=== PATIENT | male | born 1990 | race American Indian/Alaskan Native ===

== ENCOUNTER 2021-03-05 10:00 | Emergency (ER) | payer OTHER ==
[2021-03-05 10:22] VITALS: BP 130/84
--- NOTE | 2021-03-05 10:34 | Emergency Department Report ---
ED Rash HPI - HPI Stated Complaint: RASH Time Seen by Provider: 03/05/21 10:20 Duration: 1 week Location: Neck, Chest, Back, Abdomen, Upper Extremities, Lower Extremities Suspected Cause: Other (natural viagra medication) Rash Symptoms: No Itching, No Facial Swelling, No Tongue/Oral Swelling, No Breathing Difficulties, No Choking Sensation, No Wheezing/Dyspnea, No Peeling, No Blistering, No Fever, No Lightheaded, No Malaise, No Myalgias Severity: mild Other History: 30-year-old male presents to the ER today with complaints of a rash mainly to his trunk, upper extremities and lower extremities. He states that he noticed it about a week ago. He states that he does not itch nor is it tender to palpate. He states that it seems to be getting better, but he was just concerned and wanted to have it checked. He denies any new contacts such as new soaps, lotions, deodorants, foods or any other new contacts. He denies similar rash in the past. He denies any associated swelling, shortness of breath, wheezing, or any additional symptoms at this time. ED Review of Systems ROS: Stated complaint: RASH Other details as noted in HPI Comment: All other systems reviewed and negative Constitutional: denies: chills, fever Eyes: denies: eye pain, eye discharge, vision change ENT: denies: ear pain, throat pain, dental pain, hearing loss, epistaxis, congestion Respiratory: denies: cough, shortness of breath, SOB with exertion, SOB at rest, wheezing Cardiovascular: denies: chest pain, palpitations, dyspnea on exertion, edema, syncope, paroxysmal nocturnal dyspnea Gastrointestinal: denies: abdominal pain, nausea, diarrhea, constipation, hematemesis, melena, hematochezia Genitourinary: denies: urgency, dysuria, frequency, hematuria, discharge, testicular pain, testicular mass Musculoskeletal: denies: back pain, joint swelling, arthralgia, myalgia Skin: rash. denies: lesions, change in color, change in hair/nails, pruritus Neurological: denies: headache, weakness, paresthesias Psychiatric: denies: anxiety, depression, auditory hallucinations, visual hallucinations, homicidal thoughts, suicidal thoughts Hematological/Lymphatic: denies: easy bleeding, easy bruising, swollen glands ED Past Medical Hx - Past Medical History Additional medical history: DONATED KIDNEY - Surgical History Additional Surgical History: KIDNEY - Social History Smoking Status: Never Smoker - Medications Home Medications: Home Medications Medication Instructions Recorded Confirmed Last Taken Type Triamcinolone 0.1% [Kenalog 0.1% 1 applic TP TID #30 gm 03/05/21 Unknown Rx CREAM] Rash Exam - Exam General: Vital signs noted. No distress. Alert and acting appropriately. HEENT: No Periorbital Edema, No Conjuctival Injection, No Chemosis, No Perioral Edema, No Tongue Edema, No Uvular Edema, No Compromised Airway, No Drooling Lungs: No Good Air Exchange, No Wheezes, No Ronchi, No Stridor, No Cough, No Labored Respirations, No Retractions, No Use of Accessory Muscles, No Other Abnormal Lung Sounds Skin: Yes Maculopapular Rash (Maculopapular, some erythematous, some hypopigmented, annular rash of varying sizes scattered on chest, abdomen, mildly to the back and upper arms and his thighs. No secondary bacterial infection noted.), No Urticarial Rash, No Morbilliform rash, No Bulla(e), No Excoriations, No Weeping, No Tenderness, No Erythema, No Edema, No Encrustations, No Other Other: Positive: Abdomen Normal, Neurologic Normal, Musculoskeletal Normal ED Course Vital Signs 03/05/21 10:18 Temperature 98.2 F Pulse Rate 95 H Respiratory 18 Rate Blood Pressure 130/84 O2 Sat by Pulse 100 Oximetry ED Medical Decision Making - Medical Decision Making The patient is now resting comfortably, is alert and in no distress. The patient has a normal mental status per age and is neurologically intact. The rash does not have petechiae or purpura. There are no mucous membrane lesions, no signs of abscess and no bullae. No rash noted to the palmar surface of the hand on the soles of the feet. He has no dysuria, penile discharge or rash to his genitalia. The patient appears well, and has no signs of systemic toxicity. His rash is concerning for pityriasis. The history, exam, and current condition do not demonstrate signs of sepsis or serious bacterial infection, [place] spotted fever, meningitis, meningococcemia, Lyme's disease, toxic shock syndrome, syphilis or other significant systemic illness requiring further treatment, testing or consultation in the emergency department. Discussed my suspected diagnosis and treatment plan with patient, but informed him that he most importantly needs to follow-up with behavioral instructor especially if is not getting fully better. The vital signs have been stable. Patient expressed understanding of all instructions and agree with plan. . The patient's condition is stable and appropriate for discharge. The patient or caregiver will pursue further outpatient evaluation with the primary care physician or other designated or consulting physician as indicated in the discharge instructions. Critical care attestation.: If time is entered above; I have spent that time in minutes in the direct care of this critically ill patient, excluding procedure time. ED Disposition Clinical Impression: Pityriasis rosea Disposition: DC-01 TO HOME OR SELFCARE Is pt being admited?: No Does the pt Need Aspirin: No Condition: Stable Instructions: Pityriasis Rosea Additional Instructions: Use the triamcinolone as prescribed. Most importantly I recommend that you follow up with behavioral instructor either this week or next week. Return to ED if worse. Prescriptions: Triamcinolone 0.1% [Kenalog 0.1% CREAM] 1 applic TP TID #30 gm Referrals: Lumps and bumps, J[facility] [Other] - 3-5 Days Time of Disposition: 10:35
== END 2021-03-05 11:01 | disposition home or self-care (01) ==
LOC: ED 10:00
DX: L42 Pityriasis rosea (principal); Z98.890 Other specified postprocedural states; Z91.048 Other nonmedicinal substance allergy status
CPT/HCPCS: 99282